=== PATIENT | female | born 1990 | race Caucasian/White ===

== ENCOUNTER 2016-12-31 14:35 | Emergency (ER) | payer MEDICAID ==
--- NOTE | ~2016-12-31 | EKG ---
PATIENT: EZRA BLAIR UNIT #: [id number] Ventricular Rate: 90 BPM Atrial Rate: 90 BPM P-R Interval: 134 ms QRS Duration: 74 ms Q-T Interval: 334 ms QTC Calculation(Bezet): 408 ms P [place]: 48 degrees Calculated R [place]: 73 degrees Calculated T [place]: 52 degrees Diagnosis Line: Normal sinus rhythm Diagnosis Line: Normal ECG Diagnosis Line: No previous ECGs available Diagnosis Line: Confirmed by SABRA RHODES MD ([id number]) on Diagnosis Line: 01/02/2017 3:16:40 PM INTERPRETING MD: MEAGAN FINCH
== END 2016-12-31 15:55 | disposition left against medical advice (07) ==
LOC: CED 14:35
DX: Z53.21 Procedure and treatment not carried out due to patient leaving prior to being seen by health care provider (principal)
CPT/HCPCS: 84703; 93005